=== PATIENT | female | born 1955 | race African-American/Black ===

== ENCOUNTER 2022-07-16 04:28 | Inpatient (IN) | payer MEDICARE, OTHER ==
[~2022-07-16] VITALS: Ht 160 cm; Wt 74.8 kg
[~2022-07-16 04:28] MED LIST: ALPR2TAB2 PO; CARI350T28 PO; DIPH25CA83 PO; HYDR-519 PO; LEVVL SQ; LISI20TA31 PO; METF-416 PO; QUET300T2 PO; SUMA50TA16 PO; ZOLP10TA2 PO
[2022-07-16 06:09] LABS: BASOPHILS % 0.6 % (0.0-2.0); EOSINOPHILS % 1.6 % (0.0-5.0); HEMOGLOBIN. 13.5 g/dL (12.0-16.0); MEAN CORPUSCULAR HEMOGLOBIN 28.1 pg (28.0-32.0); MEAN CORPUSCULAR VOLUME 85.7 fL (81.0-99.0); MEAN PLATELET VOLUME 9.3 fl (7.4-10.4); MONOCYTES % 9.2 % (2.0-8.0); NEUTROPHILS % 70.6 % (40.0-76.0); PLATELET 308 x1000/uL (130-400); RED BLOOD CELL COUNT 4.79 mill/uL (4.2-5.4); RED CELL DISTRIBUTION WIDTH 13.6 % (11.6-14.6)
[2022-07-16 06:26] LABS: CHLORIDE 96 mEq/L (98-107)
[2022-07-16 06:29] LABS: PROTHROMBIN TIME 10.5 sec (9.6-11.0)
[2022-07-16] MEDS ORDERED: SODIUM CHLORIDE 0.9% 1,000 ML IV ONE (07:45)
[2022-07-16 13:00] VITALS: BP 152/84
[2022-07-16] MEDS ORDERED: CLONIDINE 0.1MG TABLET PO PRN (14:45)
[2022-07-16] MEDS ORDERED: ONDANSETRON HCL 4MG/2ML INJ IV PRN (14:45)
[2022-07-16] MEDS ORDERED: IPRATROPIUM/ALBUTEROL 0.5-3(2.5)MG/3ML NEB HHN PRN (14:45)
[2022-07-16] MEDS ORDERED: ALBUTEROL (0.083%) 2.5MG/3ML NEB HHN PRN (15:00)
[2022-07-16] MEDS ORDERED: IPRATROPIUM BROMIDE (0.02%) 0.5MG/2.5ML NEB HHN PRN (15:00)
[2022-07-16] MEDS: ENOXAPARIN 40MG/0.4ML SYR SUBCUT SCH (15:42)
[2022-07-16] MEDS ORDERED: DEXTROSE 50% WATER 50ML SYRINGE IV PRN (20:30)
[2022-07-16] MEDS: BLOOD SUGAR DIAGNOSTIC STRIP TEST SCH (21:04)
[2022-07-16] MEDS: INSULIN LISPRO 100 UNITS/ML SUBCUT SCH (21:25)
[2022-07-16 22:08] LABS: CREATINE KINASE MB FRACTION 2.7 ng/mL (0.5-3.6)
[2022-07-16] MEDS ORDERED: INSULIN LISPRO 100 UNITS/ML SUBCUT NR (22:15)
[2022-07-16] MEDS: ACETAMINOPHEN 325MG TABLET PO PRN (23:16)
[2022-07-17] MEDS: BLOOD SUGAR DIAGNOSTIC STRIP TEST SCH ×3 (06:43→17:05)
[2022-07-17 06:45] LABS: CREATINE KINASE MB FRACTION 2.5 ng/mL (0.5-3.6)
[2022-07-17] MEDS: INSULIN LISPRO 100 UNITS/ML SUBCUT SCH ×2 (07:50→12:17)
[2022-07-17 08:00] VITALS: BP 142/69
[2022-07-17] MEDS: ACETAMINOPHEN 325MG TABLET PO PRN (11:25)
[2022-07-17 12:07] VITALS: BP 178/98
[2022-07-17] MEDS: ENOXAPARIN 40MG/0.4ML SYR SUBCUT SCH (14:35)
[2022-07-17 16:00] VITALS: BP 132/67
[2022-07-17] MEDS ORDERED: INSULIN LISPRO 100 UNITS/ML SUBCUT NR (16:45)
[2022-07-17] MEDS ORDERED: FAMOTIDINE 20MG TABLET PO NR (16:45)
[2022-07-17 18:29] VITALS: BP 132/68
[2022-07-18 08:00] VITALS: BP 113/58
[2022-07-18 12:00] VITALS: BP 110/52
[2022-07-18 16:00] VITALS: BP 149/86
== END 2022-07-17 20:11 | DRG 420 ==
LOC: ER 04:28 → EDBEDREQTM 06:46 → EDBEDREQSVC 06:46 → EDBEDREQ 06:46 → 6EST 09:39 → EDBEDREQSVC 10:40 → ENRESERV 12:15
PROVIDERS: ADMIT Internal Medicine; ATTEND Internal Medicine
DX: E11.65 Type 2 diabetes mellitus with hyperglycemia (principal); E87.1 Hypo-osmolality and hyponatremia; F41.9 Anxiety disorder, unspecified; I10 Essential (primary) hypertension; Z20.822 Contact with and (suspected) exposure to COVID-19; F17.210 Nicotine dependence, cigarettes, uncomplicated; G40.909 Epilepsy, unspecified, not intractable, without status epilepticus; Z59.00 Homelessness unspecified; Z99.3 Dependence on wheelchair; Z79.4 Long term (current) use of insulin; Z79.84 Long term (current) use of oral hypoglycemic drugs; Z79.899 Other long term (current) drug therapy; Z79.01 Long term (current) use of anticoagulants
CPT/HCPCS: 36415; 71045; 80053; 82553; 82962; 83036; 83605; 84145; 84484; 85025; 87426; 93005; 99285; J1650; J1815; J7030